=== PATIENT | female | born 1990 | race Two or more races ===

== ENCOUNTER 2021-03-19 12:51 | Outpatient (REF) | payer OTHER, SELFPAY ==
[2021-03-19 14:37] LABS: COVID-19 Test Negative (Negative); IDNOW Serial# 55D5AD1C
== END 2021-03-19 12:52 | disposition home or self-care (01) ==
LOC: HO.LAB 12:51
PROVIDERS: Visit Provider Internal Medicine
DX: Z20.822 Contact with and (suspected) exposure to COVID-19 (principal)
CPT/HCPCS: 36415; 87635; C9803

== ENCOUNTER → 2021-10-13 12:56 | Outpatient (BNVA) | payer OTHER, SELFPAY | PROVIDERS: PCP Internal Medicine; Visit Provider Obstetrics & Gynecology ==